=== PATIENT | female | born 1975 | race Caucasian/White ===

== ENCOUNTER 2017-11-20 18:29 | Emergency (ER) | payer SELFPAY ==
[~2017-11-20] VITALS: Ht 170.2 cm; Wt 106.2 kg
--- NOTE | 2017-11-20 23:05 | NUR ---
PATIENT LEFT WITHOUT BEING SEEN BY DR. CONNOLLY. NO FURTHER CARE PROVIDED FOR PATIENT.
== END 2017-11-20 23:05 | disposition left against medical advice (07) ==
LOC: MED 18:29
DX: M79.642 Pain in left hand (principal); M54.2 Cervicalgia; R51 Headache; R42 Dizziness and giddiness; R11.0 Nausea; Z53.21 Procedure and treatment not carried out due to patient leaving prior to being seen by health care provider
CPT/HCPCS: 81002; 81025

== ENCOUNTER 2017-11-21 14:11 | Emergency (ER) | payer SELFPAY ==
[~2017-11-21] VITALS: Ht 167.6 cm; Wt 111.1 kg
[2017-11-21 14:20] VITALS: BP 118/59
--- NOTE | 2017-11-21 14:29 | NUR ---
PT AMBULAGTED TO BED 11 AT THIS TIME
--- NOTE | 2017-11-21 14:30 | NUR ---
42 Y/O F W/C/O "LEFT SHOULDER PAIN SINCE YESTERDAY." PT STATED SHE CAME HERE AND WAS NOT SEEN. PT DENIES INJURY AND STATES PAIN WAS SUDDEN ONSET AND THAT THE PAIN HAS GOTTEN WORSE SINCE YESTERDAY AND RADIATES TO FINGERS NOW. +CMS, +ROM,PT DENIES N/V/D; SKIN IS INTACT, PINK/WARM/DRY; AAOX4, PERRL, WITH EVEN AND STEADY GAIT; LUNGS CLEAR BL, BREATHING UNLABORED; HR EVEN AND REGULAR, BL PERIPHERAL PULSES PRESENT; BS ACTIVE X4, NO TENDERNESS TO PALPATION, NO HEPATOSPLENOMEGALLY PALPATED, RESONANT TO PERCUSSION; PT DENIES ANY FEVER, CP, SOB, OR COUGH AT THIS TIME; PT STATES 10/10 PAIN AT THIS TIME; VSS; PATIENT POSITIONED FOR COMFORT; HOB ELEVATED; BEDRAILS UP X2; BED DOWN.
--- NOTE | 2017-11-21 14:37 | NUR ---
DR. GREENWOOD AT BEDSIDE EVALUATING
[2017-11-21] MEDS: IBUPROFEN 400 MG TAB PO ONE (14:52)
[2017-11-21] MEDS ORDERED: LIDOCAINE MPF 1% - 5 mL VIAL 10 ML ONE (14:58)
--- NOTE | 2017-11-21 15:30 | NUR ---
PT. RESTING COMFORTABLY IN BED, RR EVEN AND UNLABORED. SON AT BEDSIDE . WILL CONTINUE TO MONITOR .
[2017-11-21] MEDS: LIDOCAINE 1% 500 MG/50 ML VIAL INJ SCH (16:22)
[2017-11-21 16:25] VITALS: BP 120/60
--- NOTE | 2017-11-21 16:25 | NUR ---
Patient discharged with v/s stable. Written and verbal after care instructions given and explained. Patient alert, oriented and verbalized understanding of instructions. Ambulatory with steady gait. All questions addressed prior to discharge. ID band removed. Patient advised to follow up with PMD. Rx of NAPROSYN 375MG, TRAMADOL given. Patient educated on indication of medication including possible reaction and side effects. Opportunity to ask questions provided and answered.
== END 2017-11-21 16:25 | disposition home or self-care (01) ==
LOC: MED 14:11
DX: M54.2 Cervicalgia (principal); M54.5 Low back pain
CPT/HCPCS: 20552; 99284; J2001